=== PATIENT | male | born 1975 | race Caucasian/White ===

== ENCOUNTER → 2017-01-30 | Outpatient (CLI) | payer BC ==
[~2017-01-30] MED LIST: *BLDWK7; AUG875 PO; BACTRIMDS PO; CLARITD12H PO; FLEXERIL10 PO; MOTRIN800 PO; RHINOAEROS NASAL; SKELAXIN40 PO; TAMIFLU PO; TYLENOL#3; ZYRTEC10 PO; ZYRTECD12 PO; [UNRECOGNIZED DRUG - CODE] PO; [UNRECOGNIZED DRUG - OTHER] TOPICAL
[2017-01-30 09:40] LABS: MEAN CORPUSCULAR VOLUME 88.5 fl (80.0-96.0); RED CELL DISTRIBUTION WIDTH 12.2 % (11.5-14.5); WHITE BLOOD COUNT 5.4 K/mm3 (4.0-10.0)
[2017-01-30 10:09] LABS: ALBUMIN 4.3 GM/DL (3.2-5.2); ALBUMIN/GLOBULIN RATIO 1.43 (1.00-1.93); ALKALINE PHOSPHATASE 62 U/L (45-117); ALT/SGPT 54 U/L (12-78); ANION GAP 6 MEQ/L (8-16); AST/SGOT 26 U/L (15-37); BLOOD UREA NITROGEN 13 MG/DL (7-18); CALCIUM LEVEL 8.6 MG/DL (8.5-10.1); CARBON DIOXIDE LEVEL 30 MEQ/L (21-32); CHLORIDE LEVEL 104 MEQ/L (98-107); CHOLESTEROL LEVEL 181 MG/DL (<200); CREATININE FOR GFR 1.19 MG/DL (0.70-1.30); GLOMERULAR FILTRATION RATE > 60.0 (>60); GLUCOSE, FASTING 95 MG/DL (70-105); POTASSIUM SERUM 4.1 MEQ/L (3.5-5.1); SODIUM LEVEL 140 MEQ/L (136-145); TOTAL PROTEIN 7.3 GM/DL (6.4-8.2); TRIGLYCERIDES LEVEL 127 MG/DL (<150)
== END ==
LOC: M LAB 08:50
PROVIDERS: ATTEND Family Medicine
DX: E55.9 Vitamin D deficiency, unspecified (principal); R74.8 Abnormal levels of other serum enzymes; K21.9 Gastro-esophageal reflux disease without esophagitis; R41.840 Attention and concentration deficit

== ENCOUNTER → 2017-01-30 | Outpatient (REF) | payer BC | LOC: M SFHCLERA 07:31 | PROVIDERS: ATTEND Family Medicine | DX: R74.8 Abnormal levels of other serum enzymes (principal); K21.9 Gastro-esophageal reflux disease without esophagitis; E55.9 Vitamin D deficiency, unspecified; R41.840 Attention and concentration deficit; Z53.9 Procedure and treatment not carried out, unspecified reason ==

== ENCOUNTER → 2017-09-01 | Outpatient (CLI) | payer BC | LOC: M LRY 10:43 | DX: R07.89 Other chest pain (principal) | CPT/HCPCS: 71046 ==

== ENCOUNTER → 2017-09-01 | Outpatient (REF) | payer BC | LOC: M SFHCLERA 10:33 | DX: R11.2 Nausea with vomiting, unspecified (principal) ==

== ENCOUNTER → 2018-02-04 | Outpatient (CLI) | payer BC ==
[2018-02-04 08:31] LABS: ESTIMATED AVERAGE GLUCOSE 100 MG/DL (60-110); HEMOGLOBIN A1c 5.1 %
[2018-02-04 09:02] LABS: CHOLESTEROL LEVEL 184 MG/DL (<200); HDL CHOLESTEROL 46 MG/DL (>40); MAGNESIUM LEVEL 2.3 MG/DL (1.8-2.4); NON-HDL-C 138 MG/DL; TRIGLYCERIDES LEVEL 80 MG/DL (<150)
== END ==
LOC: M LAB 07:40
DX: K21.9 Gastro-esophageal reflux disease without esophagitis (principal); Z68.27 Body mass index [BMI] 27.0-27.9, adult
CPT/HCPCS: 83735

== ENCOUNTER 2018-03-24 07:24 | Day surgery (SDC) | payer BC ==
[2018-03-24] MEDS ORDERED: fentaNYL 100 MCG/2 ML INJECTION (J3010) As Ordered (07:34)
[2018-03-24] MEDS ORDERED: PROPOFOL 200 MG/20 ML VIAL As Ordered ×2 (07:35→09:04)
[2018-03-24] MEDS: NS 1,000 ML IV (07:37)
[2018-03-24] MEDS ORDERED: LIDOCAINE 2% INJ 100 MG/5 ML SDV (FOR ANES.) As Ordered (07:37)
== END 2018-03-24 09:37 | disposition home or self-care (01) ==
LOC: M OPP 07:24
DX: K21.9 Gastro-esophageal reflux disease without esophagitis (principal); K31.89 Other diseases of stomach and duodenum; K22.8 Other specified diseases of esophagus; K29.70 Gastritis, unspecified, without bleeding; F90.9 Attention-deficit hyperactivity disorder, unspecified type; Z79.899 Other long term (current) drug therapy
CPT/HCPCS: 91035

== ENCOUNTER → 2018-08-27 | Outpatient (REF) | payer BC ==
[~2018-08-27] MED LIST changes: +ADDE20CA3 PO; +CETI10CH PO; +OMEP20CA3 PO
[2018-08-27 20:03] LABS: INFLUENZA A AMPLIFICATION NEGATIVE (NEGATIVE); INFLUENZA B AMPLIFICATION NEGATIVE (NEGATIVE)
== END ==
LOC: M LAB REF 18:50
PROVIDERS: ATTEND Physician Assistant
DX: J11.1 Influenza due to unidentified influenza virus with other respiratory manifestations (principal)

== ENCOUNTER → 2018-10-19 | Outpatient (CLI) | payer BC ==
--- NOTE | 2018-10-19 09:18 | REP ---
Clinical: Right ankle pain. Technique: AP, lateral, bilateral oblique views of the right ankle. Findings: Medial malleolus demonstrates subtle cortical irregularity with spurring. Ankle mortise appears intact. No acute fracture dislocation. Lateral malleolus appears normal. Impression: Mild degenerative changes primarily involving the medial malleolus. Electronically Signed by Taqueria Yen MD 10/19/2018 09:10 A
== END ==
LOC: M LRY 08:04
PROVIDERS: ATTEND Family Medicine
DX: M25.571 Pain in right ankle and joints of right foot (principal)

== ENCOUNTER → 2018-11-06 | Outpatient (CLI) | payer BC ==
--- NOTE | 2018-11-06 10:47 | REP ---
MRI RIGHT ANKLE WITHOUT CONTRAST: 11/06/2018 Comparison: 10/19/2018 x-ray. Clinical history. Right ankle pain, medial greater than lateral, chronic for several months. Technique: Coronal fat suppressed T2, axial T1 with fat suppressed T2 and a sagittal T1 with T2 STIR sequence provided. Achilles tendon shows no abnormal thickening. No intratendon signal abnormality. No significant peritendinitis. The Achilles fat pad intact. There is trace amount of fluid posterior to the ankle joint and the posterior subtalar joint. There is an os trigonum which has a sharp posterior inferior curve to its contour. Posterior subtalar joint showed no subchondral edema or chondromalacia. There is a small amount of fluid anterior to the posterior subtalar joint. There is some increased signal in deep fibers of the deltoid ligament but no gross tear. There is thickening of the distal posterior tibial tendon inferior to the medial malleolus suggesting grade 1 tendon injury. No gross tear or retraction. The FDL and FHL tendons are intact. PD/PL tendons, AT, EDL and EHL tendons are all intact. There is edema and fluid in the sinus tarsi. There is strain of the posterior talofibular ligament and calcaneofibular ligaments, significant. The anterior tibiofibular ligament is intact. Anterior talofibular ligament with some strain. Fluid anterior to the ankle joint and tibial plafond. There is no talar dome osteochondral defect. There appears to be some mild chondromalacia at the ankle mortise along the talar dome. Impression: 1. Evidence of thickening of the distal course of the posterior tibial tendon as it extends anterior and inferior to the medial malleolus with grade 1 tendon changes. No disruption of the tendon or significant fluid/tenosynovitis. 2. The other medial and lateral as well as anterior tendons and the Achilles about the ankle were unremarkable 3. Some mild strain deltoid ligament deep fibers and the significant strain partial tearing of the posterior talofibular, calcaneofibular and anterior tibiofibular ligament. The tibiofibular ligament intact. Fluid anterior and posterior to the ankle joint. 4. Fluid and edema in the sinus tarsi. Electronically Signed by Adonis Campos MD 11/06/2018 06:33 P
== END ==
LOC: M RAD 07:17
PROVIDERS: ATTEND Family Medicine
DX: S96.911A Strain of unspecified muscle and tendon at ankle and foot level, right foot, initial encounter (principal); X58.XXXA Exposure to other specified factors, initial encounter; Y92.9 Unspecified place or not applicable

== ENCOUNTER → 2019-01-28 | Outpatient (CLI) | payer BC ==
[2019-01-28 14:43] LABS: HEMOGLOBIN A1c 5.5 %
[2019-01-28 14:46] LABS: ALT/SGPT 61 U/L (12-78); BILIRUBIN,TOTAL 0.7 MG/DL (0.2-1.0); BLOOD UREA NITROGEN 13 MG/DL (7-18); CALCIUM LEVEL 8.5 MG/DL (8.5-10.1); CARBON DIOXIDE LEVEL 27 MEQ/L (21-32); CHLORIDE LEVEL 107 MEQ/L (98-107); CHOLESTEROL LEVEL 157 MG/DL (<200); CHOLESTEROL RISK RATIO 4.131 (<5); CREATININE FOR GFR 1.11 MG/DL (0.70-1.30); GLOMERULAR FILTRATION RATE > 60.0 (>60); GLUCOSE, FASTING 87 MG/DL (70-100); HDL CHOLESTEROL 38 MG/DL (>40); LDL CHOLESTEROL 99 MG/DL (<100); NON-HDL-C 119 MG/DL; SODIUM LEVEL 141 MEQ/L (136-145); TOTAL PROTEIN 7.1 GM/DL (6.4-8.2); TRIGLYCERIDES LEVEL 99 MG/DL (<150)
== END ==
LOC: M LAB 13:28
PROVIDERS: ATTEND Family Medicine
DX: E66.3 Overweight (principal)

== ENCOUNTER → 2019-01-28 | Outpatient (REF) | payer BC | LOC: M SFHCLERA 08:00 | PROVIDERS: ATTEND Family Medicine | DX: E66.3 Overweight (principal); Z53.9 Procedure and treatment not carried out, unspecified reason ==

== ENCOUNTER → 2020-02-29 | Outpatient (CLI) | payer BC ==
[~2020-02-29] MED LIST changes: +OMEP1CAP73 PO; -OMEP20CA3 PO
== END ==
LOC: M LABSMTC 13:37
PROVIDERS: ATTEND Pediatrics
DX: Z11.59 Encounter for screening for other viral diseases (principal)

== ENCOUNTER → 2020-03-16 | Outpatient (CLI) | payer BC | LOC: M LABSMTC 10:47 | PROVIDERS: ATTEND Pediatrics | DX: Z20.828 Contact with and (suspected) exposure to other viral communicable diseases (principal) ==

== ENCOUNTER → 2020-04-11 | Outpatient (CLI) | payer BC ==
[2020-05-30 10:43] LABS: BASO % 0.6 % (0.0-1.0); EOS # 0.1 10^3/uL (0.0-0.5); EOS % 1.2 % (0.0-3.0); HEMATOCRIT 41.8 % (42.0-52.0); HEMOGLOBIN 14.6 g/dl (13.5-17.5); LYMPH # 1.8 10^3/uL (1.5-5.0); MEAN CORPUSCULAR HEMOGLOBIN 31.2 pg (27.0-33.0); MEAN CORPUSCULAR HGB CONC 34.9 g/dl (32.0-36.5); MEAN CORPUSCULAR VOLUME 89.3 fl (80.0-96.0); MONO # 0.4 10^3/uL (0.0-0.8); MONO % 8.9 % (0.0-5.0); NEUTROPHILS # 2.6 10^3/uL (1.5-8.5); NEUTROPHILS % 52.1 % (36.0-66.0); PLATELET COUNT, AUTOMATED 193 10^3/uL (150-450); RED BLOOD COUNT 4.68 10^6/uL (4.30-6.10)
[2020-06-15 14:30] LABS: ALBUMIN 4.1 GM/DL (3.2-5.2); ALT/SGPT 44 U/L (12-78); BILIRUBIN,TOTAL 0.7 MG/DL (0.2-1.0); BLOOD UREA NITROGEN 14 MG/DL (7-18); CALCIUM LEVEL 8.9 MG/DL (8.5-10.1); CARBON DIOXIDE LEVEL 29 MEQ/L (21-32); CHLORIDE LEVEL 107 MEQ/L (98-107); CREATININE FOR GFR 1.06 MG/DL (0.70-1.30); GLOMERULAR FILTRATION RATE > 60.0 (>60); GLUCOSE, FASTING 107 MG/DL (70-100); POTASSIUM SERUM 4.2 MEQ/L (3.5-5.1); SODIUM LEVEL 139 MEQ/L (136-145); TOTAL PROTEIN 6.9 GM/DL (6.4-8.2)
== END ==
LOC: M LAB 07:25
PROVIDERS: ATTEND Family Medicine
DX: N40.0 Benign prostatic hyperplasia without lower urinary tract symptoms (principal)

== ENCOUNTER → 2020-04-11 | Outpatient (CLI) | payer BC | LOC: M LAB 07:25 | PROVIDERS: ATTEND Urology | DX: N40.1 Benign prostatic hyperplasia with lower urinary tract symptoms (principal) ==

== ENCOUNTER → 2021-06-30 | Outpatient (CLI) | payer BC | LOC: M LABSMTC 09:46 | PROVIDERS: ATTEND Anesthesiology | DX: Z01.812 Encounter for preprocedural laboratory examination (principal); Z20.822 Contact with and (suspected) exposure to COVID-19 ==

== ENCOUNTER 2021-07-05 06:44 | Day surgery (SDC) | payer BC ==
[~2021-07-05] VITALS: Ht 193 cm; Wt 104.8 kg
[~2021-07-05 06:44] MED LIST changes: +NS 1,000 ML IV ONE
--- OUTSIDE RECORDS SUMMARY | 2021-07-05 06:49 | CCD | Continuity of Care Document ---
Author Author Edilson NGUYEN M.D. Organization Unknown Address [address] [facility], [address] [place] [address] Phone [phone] Care Team Providers Care Express Manager Name Role Phone Josué Kan D.O. AUTM [phone] AUTM Unavailable Problems Description No Information Available Social History Type Date Description Comments Sex Unknown ETOH Use Denies alcohol use Tobacco Use Start: Unknown End: Unknown Patient is a former smoker 1/2 ppd x5 years quit in 1998 Recreational Drug Use Denies Drug Use Allergies and adverse reactions Description No Known Drug Allergies Medications Active Medications SIG Qnty Indications Ordering Provide r Date Adderall XR 20mg Caps ER 24HR 1tab po qd Unknown Zyrtec Allergy 10mg Tablets 1tab po qd Unknown Omeprazole 20mg Capsules DR 1tab po qd Unknown Immunizations Description No Information Available Vital Signs Date Vital Result Comment 06/06/2021 1:03pm BP Systolic 126 mmHg BP Diastolic 84 mmHg Body Temperature 98.4 F Height 76 inches 6'4" Weight 232.50 lb BMI (Body Mass Index) 28.3 kg/m2 [place] Body Weight 202 lb Weight 105.462 kg BSA (Body Surface Area) 2.36 m2 01/21/2018 10:57am BP Systolic 124 mmHg BP Diastolic 70 mmHg Height 76 inches 6'4" Weight 227.00 lb BMI (Body Mass Index) 27.6 kg/m2 [place] Body Weight 202 lb Weight 102.967 kg BSA (Body Surface Area) 2.34 m2 Results Description No Information Available Procedures Description No Information Available Medical Devices Description No Information Available Encounters Description No Information Available Assessments Description No Information Available Plan of Treatment 01/21/2018 - Donny Lee M.D.* K21.0 Gastro-esophageal reflux disease with esophagitis * * New Orders:* Endoscopy, Ordered: 01/21/18 * Comments:* Impression:-- Chronic acid reflux with heartburn and acid regurgitation -- well controlled on omeprazole 20 mg daily -- DDx - r/o Hiatal hernia vs Barretts esophagus vs GERD vs PUD. * Recommendations:* -- Patient educated on the differential diagnoses in detail and all questions answered. 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 -- Anti reflux measures reinforced; Advised to avoid being overweight/obese; avoid acid reflux inducing food: excessive caffeine, chocolate, alcohol, peppermint and fatty foods; , Avoid large and late meal: eating three or more hours before bedtime. Printed material provided to patient. -- Will schedule for EGD with Beltr[facility] PH monitoring test. The procedure, its indications, risks (bleeding, perforation, infection, hypotension, respiratory depression, allergy, need for endotracheal intubation, surgery, or even ), benefits, limitations (e.g., missing a lesion), and the alternatives (radiographic studies) were explained to the patient who understood and agreed for the test.. -- Post procedure appointment based on EGD findings. -- Follow up with PMD for routine medical care and other age appropriate health maintenance. Functional Status Description No Information Available Mental Status Description No Information Available Referrals Refer to Reason for Referral Status Appt Date Donny Lee M.D. COLO SCREENING Scheduled 05/25 [facility] [address] [facility], [address] [place] [address] [id number] [phone]
--- OUTSIDE RECORDS SUMMARY | 2021-07-05 06:49 | CCD | Continuity of Care Document ---
Author Author Edilson NGUYEN M.D. Organization Unknown Address [address] [facility], [address] [place] [address] Phone [phone] Care Team Providers Care Hand Driller Name Role Phone Josué Kan D.O. 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 [...] Donny Lee M.D. COLO SCREENING Scheduled 05/25 [facility] [address] [facility], [address] [place] [address] [id number] [phone]
--- OUTSIDE RECORDS SUMMARY | 2021-07-05 06:49 | CCD ---
Author Author [facility] Organization [facility] Address Unknown Phone Unavailable Support Name Relationship Address Phone [facility]* Next Of Kin [address] [place] [address] THAI MANTILLA Next Of Kin [address] [address] [facility] Next Of Kin [address] [place] [address] GUERDA GRANT Next Of Kin [address] [place] [address] VICKEY CUMMINS Next Of Kin [address] [place] [address] Guerda Grant [facility] [address] [place] [address] [phone] Re-disclosure Warning The records that you are about to access may contain information from federally-assisted alcohol or drug abuse programs. If such information is present, then the following federally mandated warning applies: This information has been disclosed to you from records protected by federal confidentiality rules (42 CFR part 2). The federal rules prohibit you from making any further disclosure of this information unless further disclosure is expressly permitted by the written consent of the person to whom it pertains or as otherwise permitted by 42 CFR part 2. A general authorization for the release of medical or other information is NOT sufficient for this purpose. The Federal rules restrict any use of the information to criminally investigate or prosecute any alcohol or drug abuse patient.The records that you are about to access may contain highly sensitive health information, the redisclosure of which is protected by Article 27-F of the [facility] Public Health law. If you continue you may have access to information: Regarding HIV / AIDS; Provided by facilities licensed or operated by the [facility] Office of Mental Health; or Provided by the [facility] Office for People With Developmental Disabilities. If such information is present, then the following [facility] mandated warning applies: This information has been disclosed to you from confidential records which are protected by state law. State law prohibits you from making any further disclosure of this information without the specific written consent of the person to whom it pertains, or as otherwise permitted by law. Any unauthorized further disclosure in violation of state law may result in a fine or half-way sentence or both. A general authorization for the release of medical or other information is NOT sufficient authorization for further disc losure. Family History Family Member Name Family Member Gender Family Member Status Date o f Status Description Data Source(s) Unknown Unknown Problem [facility] ([facility], ) Encounters Encounter Providers Location Date Indications Data Source(s ) Unknown [address] [facility] [place] [address] 05/09/2021 12:00:00 AM EDT eCW1 ([facility]) Outpatient [address] [facility] [place] [address] 05/08/2021 12:00:00 AM EDT eCW1 ([facility]) Unknown [address] [facility] [place] [address] 04/06/2021 12:00:00 AM EDT eCW1 ([facility]) Unknown [address] [facility] [place] [address] 03/06/2021 12:00:00 AM EDT eCW1 ([facility]) Unknown [address] [facility] [place] [address] 02/03/2021 12:00:00 AM EDT eCW1 ([facility]) Unknown [address] [facility] [place] [address] 01/04/2021 12:00:00 AM EDT eCW1 ([facility]) Unknown [address] [facility] [place] [address] 01/04/2021 12:00:00 AM EDT eCW1 ([facility]) Unknown [address] [facility] [place] [address] 12/03/2020 12:00:00 AM EDT eCW1 ([facility]) [place] [address] [facility] [place] [address] 11/07/2020 12:00:00 AM EDT eCW1 ([facility]) [place] [address] [facility] [place] [address] 11/01/2020 12:00:00 AM EST eCW1 ([facility]) [place] [address] [facility] [place] [address] 10/02/2020 12:00:00 AM EST eCW1 ([facility]) [place] [address] [facility] [place] [address] 08/30/2020 12:00:00 AM EST eCW1 ([facility]) [place] [address] [facility] [place] [address] 08/30/2020 12:00:00 AM EST eCW1 ([facility]) [place] [address] [facility] [place] [address] 08/08/2020 12:00:00 AM EST eCW1 ([facility]) [place] [address] [facility] [place] [address] 07/13/2020 12:00:00 AM EST eCW1 ([facility]) [place] [address] [facility] [place] [address] 06/26/2020 12:00:00 AM EST eCW1 ([facility]) [place] [address] [facility] [place] [address] 06/15/2020 12:00:00 AM EDT eCW1 ([facility]) [place] [address] [facility] [place] [address] 06/15/2020 12:00:00 AM EDT eCW1 ([facility]) [place] [address] [facility] [place] [address] 06/12/2020 12:00:00 AM EDT [facility]CW1 [facility] Immunizations Vaccine Date Status Description Data Source(s) COVID-19 VACCINE [facility] 05/21/2021 12:00:00 AM EDT completed [facility] Vaccine Series Complete: YESThis Data wa s Submitted to [facility] Via [employer] COVID-19 VACCINE [facility] 09/20/2020 12:00:00 AM EST completed [facility] Vaccine Series Complete: YESThis Data wa s Submitted to [facility] [employer] COVID-19 VACCINE [facility] 09/01/2020 12:00:00 AM EST completed [facility] Vaccine Series Complete: NOThis Data was Submitted to [facility] [employer] Medications Medication Brand Name Start Date Product Form Dose Route Admi nistrative Instructions Pharmacy Instructions Status Indications Reaction Description Data Source(s) SUPREP BOWEL PREP KIT 17.5-3.13-1.6 gram SODIUM, POTASSIUM,M AG SULFATES 06/22/2021 12:00:00 AM EDT recon soln 354 TAKE PER 'S BOWEL PREP INSTRUCTIONS TAKE PER 'S BOWEL PREP INSTRUCTIONS SOLD: 06/27/2021 [facility] 30 mg 06/12/2021 12:00:00 AM EDT capsule,extended releas e 24hr 30 TAKE ONE CAPSULE BY MOUTH EVERY MORNING MAXIMUM DAILY DOSE = 1 TAKE ONE CAPSULE BY MOUTH EVERY MORNING MAXIMUM DAILY DOSE = 1 SOLD: 06/15/2021 [facility] Amphetamine aspartate 1.25 MG / Amphetam ine Sulfate 1.25 MG / Dextroamphetamine saccharate 1.25 MG / Dextroamphetamine Sulfate 1.25 MG Oral Tablet [Adderall] Adderall 5 MG Adderall 5 MG 05/07/2021 12:00:00 AM EDT 1.0 {tablet_in_the_morning} active Adderall 5 MG eCW1 ([facility]) 24 HR Amphetamine aspartate 7.5 MG / Amp hetamine Sulfate 7.5 MG / Dextroamphetamine saccharate 7.5 MG / Dextroamphetamine Sulfate 7.5 MG Extended Release Oral Capsule [Adderall] Adderall XR 30 MG Adderall XR 30 MG 04/25 12:00:00 AM EDT 1.0 {capsule_in_the_morning} act yahir Adderall XR 30 MG eCW1 ([facility]) 24 HR Amphetamine aspartate 7.5 MG / Amp hetamine Sulfate 7.5 MG / Dextroamphetamine saccharate 7.5 MG / Dextroamphetamine Sulfate 7.5 MG Extended Release Oral Capsule 30 mg DEXTROAMPHETAMINE/AMPHETAMINE 05/07/2021 12:00:00 AM EDT capsule,extended release 24hr 30 TA KE ONE CAPSULE BY MOUTH EVERY DAY MAXIMUM DAILY DOSE = 1 CAPSULE TAKE ONE CAPSULE BY MOUTH EVERY DAY MAXI MUM DAILY DOSE = 1 CAPSULE SOLD: 05/07/2021 [facility] 5 mg 05/07/2021 12:00:00 AM EDT tablet 30 TAKE ONE TABLET BY MOUTH EVERY DAY MAXIMUM DAILY DOSE = 1 TABLET TAKE ONE TABLET BY MOUTH EVERY DAY MAXIM UM DAILY DOSE = 1 TABLET SOLD: 05/07/2021 [facility] Amphetamine aspartate 1.25 MG / Amphetam ine Sulfate 1.25 MG / Dextroamphetamine saccharate 1.25 MG / Dextroamphetamine Sulfate 1.25 MG Oral Tablet [Adderall] Adderall 5 MG Adderall 5 MG 05/07/2021 12:00:00 AM EDT 1.0 {tablet_in_the_morning} active Adderall 5 MG eCW1 ([facility]) 24 HR Amphetamine aspartate 7.5 MG / Amp hetamine Sulfate 7.5 MG / Dextroamphetamine saccharate 7.5 MG / Dextroamphetamine Sulfate 7.5 MG Extended Release Oral Capsule [Adderall] Adderall XR 30 MG Adderall XR 30 MG 04/25 12:00:00 AM EDT 1.0 {capsule_in_the_morning} act yahir Adderall XR 30 MG eCW1 ([facility]) 24 HR Amphetamine aspartate 7.5 MG / Amp hetamine Sulfate 7.5 MG / Dextroamphetamine saccharate 7.5 MG / Dextroamphetamine Sulfate 7.5 MG Extended Release Oral Capsule 30 mg DEXTROAMPHETAMINE/AMPHETAMINE 04/09/2021 12:00:00 AM EDT capsule,extended release 24hr 30 TA KE ONE CAPSULE BY MOUTH EVERY MORNING MAXIMUM DAILY DOSE = 1 TAKE ONE CAPSULE BY MOUTH EVERY MORNING MAXIMUM DAILY DOSE = 1 SOLD: 04/11/2021 [facility] 24 HR Amphetamine aspartate 7.5 MG / Amp hetamine Sulfate 7.5 MG / Dextroamphetamine saccharate 7.5 MG / Dextroamphetamine Sulfate 7.5 MG Extended Release Oral Capsule [Adderall] Adderall XR 30 MG Adderall XR 30 MG 03/25 12:00:00 AM EDT 1.0 {capsule_in_the_morning} act yahir Adderall XR 30 MG eCW1 ([facility]) 24 HR Amphetamine aspartate 7.5 MG / Amp hetamine Sulfate 7.5 MG / Dextroamphetamine saccharate 7.5 MG / Dextroamphetamine Sulfate 7.5 MG Extended Release Oral Capsule 30 mg DEXTROAMPHETAMINE/AMPHETAMINE 03/09/2021 12:00:00 AM EDT capsule,extended release 24hr 30 TA KE ONE CAPSULE BY MOUTH EVERY MORNING MAXIMUM DAILY DOSE = 1 CAPSULE TAKE ONE CAPSULE BY MOUTH EVERY MORNING MAXIMUM DAILY DOSE = 1 CAPSULE SOLD: 03/11/2021 [facility] 24 HR Amphetamine aspartate 7.5 MG / Amp hetamine Sulfate 7.5 MG / Dextroamphetamine saccharate 7.5 MG / Dextroamphetamine Sulfate 7.5 MG Extended Release Oral Capsule [Adderall] Adderall XR 30 MG Adderall XR 30 MG 02/22 12:00:00 AM EDT 1.0 {capsule_in_the_morning} act yahir Adderall XR 30 MG eCW1 ([facility]) Amphetamine aspartate 1.25 MG / Amphetam ine Sulfate 1.25 MG / Dextroamphetamine saccharate 1.25 MG / Dextroamphetamine Sulfate 1.25 MG Oral Tablet [Adderall] Adderall 5 MG Adderall 5 MG 02/05/2021 12:00:00 AM EDT 1.0 {tablet_in_the_morning} active Adderall 5 MG eCW1 ([facility]) Amphetamine aspartate 1.25 MG / Amphetam ine Sulfate 1.25 MG / Dextroamphetamine saccharate 1.25 MG / Dextroamphetamine Sulfate 1.25 MG Oral Tablet [Adderall] Adderall 5 MG Adderall 5 MG 02/05/2021 12:00:00 AM EDT 1.0 {tablet_in_the_morning} active Adderall 5 MG eCW1 ([facility]) 5 mg 02/05/2021 12:00:00 AM EDT tablet 30 TAKE ONE TABLET BY MOUTH EVERY MORNING, MAXIMUM DAILY DOSE = 1 TAKE ONE TABLET BY MOUTH EVERY MORNING, MAXIMUM DAILY DOSE = 1 SOLD: 02/08/2021 [facility] 24 HR Amphetamine aspartate 7.5 MG / Amp hetamine Sulfate 7.5 MG / Dextroamphetamine saccharate 7.5 MG / Dextroamphetamine Sulfate 7.5 MG Extended Release Oral Capsule [Adderall] Adderall XR 30 MG Adderall XR 30 MG 01/23 12:00:00 AM EDT 1.0 {capsule_in_the_morning} act yahir Adderall XR 30 MG eCW1 ([facility]) Amphetamine aspartate 1.25 MG / Amphetam ine Sulfate 1.25 MG / Dextroamphetamine saccharate 1.25 MG / Dextroamphetamine Sulfate 1.25 MG Oral Tablet [Adderall] Adderall 5 MG Adderall 5 MG 02/05/2021 12:00:00 AM EDT 1.0 {tablet_in_the_morning} active Adderall 5 MG eCW1 ([facility]) 24 HR Amphetamine aspartate 7.5 MG / Amp hetamine Sulfate 7.5 MG / Dextroamphetamine saccharate 7.5 MG / Dextroamphetamine Sulfate 7.5 MG Extended Release Oral Capsule 30 mg DEXTROAMPHETAMINE/AMPHETAMINE 02/05/2021 12:00:00 AM EDT capsule,extended release 24hr 30 TA KE ONE CAPSULE BY MOUTH EVERY MORNING, MAXIMUM DAILY DOSE = 1 TAKE ONE CAPSULE BY MOUTH EVERY MORNING, MAXIMUM DAILY DOSE = 1 SOLD: 02/08/2021 [facility] 24 HR Amphetamine aspartate 7.5 MG / Amp hetamine Sulfate 7.5 MG / Dextroamphetamine saccharate 7.5 MG / Dextroamphetamine Sulfate 7.5 MG Extended Release Oral Capsule 30 mg DEXTROAMPHETAMINE/AMPHETAMINE 01/04/2021 12:00:00 AM EDT capsule,extended release 24hr 30 TA KE ONE CAPSULE BY MOUTH IN THE MORNING ONCE A DAY TAKE ONE CAPSULE BY MOUTH IN THE MORNING ONCE A DAY SOLD: [facility] 20 mg 01/04/2021 12:00:00 AM EDT capsule,delayed release (DR/EC) 90 TAKE ONE CAPSULE BY MOUTH ONCE A DAY TAKE ONE CAPSULE BY MOUTH ONCE A DAY SOLD: 03/31/2021 [facility] 24 HR Amphetamine aspartate 7.5 MG / Amp hetamine Sulfate 7.5 MG / Dextroamphetamine saccharate 7.5 MG / Dextroamphetamine Sulfate 7.5 MG Extended Release Oral Capsule [Adderall] Adderall XR 30 MG Adderall XR 30 MG 12/23 12:00:00 AM EDT 1.0 {capsule_in_the_morning} act yahir Adderall XR 30 MG eCW1 ([facility]) 24 HR Amphetamine aspartate 7.5 MG / Amp hetamine Sulfate 7.5 MG / Dextroamphetamine saccharate 7.5 MG / Dextroamphetamine Sulfate 7.5 MG Extended Release Oral Capsule [Adderall] Adderall XR 30 MG Adderall XR 30 MG 12/23 12:00:00 AM EDT 1.0 {capsule_in_the_morning} act yahir Adderall XR 30 MG eCW1 ([facility]) 20 mg 01/04/2021 12:00:00 AM EDT capsule,delayed release (DR/EC) 90 TAKE ONE CAPSULE BY MOUTH ONCE A DAY TAKE ONE CAPSULE BY MOUTH ONCE A DAY SOLD: 01/05/2021 [facility] 30 mg 12/05/2020 12:00:00 AM EDT capsule,extended releas e 24hr 30 TAKE ONE CAPSULE BY MOUTH EVERY MORNING, MAXIMUM DAILY DOSE = 1 TAKE ONE CAPSULE BY MOUTH EVERY MORNING, MAXIMUM DAILY DOSE = 1 SOLD: 12/06/2020 [facility] 24 HR Amphetamine aspartate 7.5 MG / Amp hetamine Sulfate 7.5 MG / Dextroamphetamine saccharate 7.5 MG / Dextroamphetamine Sulfate 7.5 MG Extended Release Oral Capsule [Adderall] Adderall XR 30 MG Adderall XR 30 MG 11/23 12:00:00 AM EDT 1.0 {capsule_in_the_morning} act yahir Adderall XR 30 MG eCW1 ([facility]) Famotidine 20 MG Oral Tablet Famotidine 20 MG 11/07/2020 12:00:00 A M EDT 1.0 {tablet_at_bedtime_as_needed} active Fa motidine 20 MG eCW1 ([facility]) Famotidine 20 MG Oral Tablet Famotidine 20 MG 11/07/2020 12:00:00 A M EDT 1.0 {tablet_at_bedtime_as_needed} active Fa motidine 20 MG eCW1 ([facility]) Famotidine 20 MG Oral Tablet Famotidine 20 MG 11/07/2020 12:00:00 A M EDT 1.0 {tablet_at_bedtime_as_needed} active Fa motidine 20 MG eCW1 ([facility]) Famotidine 20 MG Oral Tablet Famotidine 20 MG 11/07/2020 12:00:00 A M EDT 1.0 {tablet_at_bedtime_as_needed} suspended Famotidine 20 MG eCW1 ([facility]) Famotidine 20 MG Oral Tablet Famotidine 20 MG 11/07/2020 12:00:00 A M EDT 1.0 {tablet_at_bedtime_as_needed} active Fa motidine 20 MG eCW1 ([facility]) 20 mg 11/07/2020 12:00:00 AM EDT tablet 30 TAKE ONE TABLET BY MOUTH EVERY DAY AT BEDTIME NEEDED TAKE ONE TABLET BY MOUTH EVERY DAY AT BE DTIME NEEDED SOLD: 11/18/2020 [facility] Famotidine 20 MG Oral Tablet Famotidine 20 MG 11/07/2020 12:00:00 A M EDT 1.0 {tablet_at_bedtime_as_needed} active Fa motidine 20 MG eCW1 ([facility]) Famotidine 20 MG Oral Tablet Famotidine 20 MG 11/07/2020 12:00:00 A M EDT 1.0 {tablet_at_bedtime_as_needed} active Fa motidine 20 MG eCW1 ([facility]) Famotidine 20 MG Oral Tablet Famotidine 20 MG 11/07/2020 12:00:00 A M EDT 1.0 {tablet_at_bedtime_as_needed} active Fa motidine 20 MG eCW1 ([facility]) 24 HR Amphetamine aspartate 7.5 MG / Amp hetamine Sulfate 7.5 MG / Dextroamphetamine saccharate 7.5 MG / Dextroamphetamine Sulfate 7.5 MG Extended Release Oral Capsule [Adderall] Adderall XR 30 MG Adderall XR 30 MG 10/23 12:00:00 AM EST 1.0 {capsule_in_the_morning} act yahir Adderall XR 30 MG eCW1 ([facility]) 30 mg 11/01/2020 12:00:00 AM EST capsule,extended releas e 24hr 30 TAKE ONE CAPSULE BY MOUTH EVERY MORNING MAXIMUM DAILY DOSE = 1 CAP TAKE ONE CAPSULE BY MOUTH EVERY MORNING MAXIMUM DAILY DOSE = 1 CAP SOLD: 11/06/2020 [facility] 24 HR Amphetamine aspartate 7.5 MG / Amp hetamine Sulfate 7.5 MG / Dextroamphetamine saccharate 7.5 MG / Dextroamphetamine Sulfate 7.5 MG Extended Release Oral Capsule [Adderall] Adderall XR 30 MG Adderall XR 30 MG 10/23 12:00:00 AM EST 1.0 {capsule_in_the_morning} act yahir Adderall XR 30 MG eCW1 ([facility]) 30 mg 10/05/2020 12:00:00 AM EST capsule,extended releas e 24hr 30 TAKE ONE CAPSULE BY MOUTH EVERY MORNING, MAXIMUM DAILY DOSE = 1 TAKE ONE CAPSULE BY MOUTH EVERY MORNING, MAXIMUM DAILY DOSE = 1 SOLD: 10/05/2020 [facility] 24 HR Amphetamine aspartate 7.5 MG / Amp hetamine Sulfate 7.5 MG / Dextroamphetamine saccharate 7.5 MG / Dextroamphetamine Sulfate 7.5 MG Extended Release Oral Capsule [Adderall] Adderall XR 30 MG Adderall XR 30 MG 03/2021 12:00:00 AM EST 1.0 {capsule_in_the_morning} act yahir Adderall XR 30 MG eCW1 ([facility]) 30 mg 08/30/2020 12:00:00 AM EST capsule,extended releas e 24hr 30 TAKE ONE CAPSULE BY MOUTH EVERY MORNING, MAXIMUM DAILY DOSE = 1 TAKE ONE CAPSULE BY MOUTH EVERY MORNING, MAXIMUM DAILY DOSE = 1 SOLD: 09/06/2020 [facility] 24 HR Amphetamine aspartate 5 MG / Amphe tamine Sulfate 5 MG / Dextroamphetamine saccharate 5 MG / Dextroamphetamine Sulfate 5 MG Extended Release Oral Capsule [Adderall] Adderall XR 20 MG Adderall XR 20 MG 08/08/2020 12:00:00 AM EST active Adderall XR 20 MG eCW1 ([facility]) 20 mg 08/08/2020 12:00:00 AM EST capsule,extended releas e 24hr 30 TAKE 1 CAPSULE BY MOUTH ONCE DAILY, MAXIMUM DAILY DOSE = 1 TAKE 1 CAPSULE BY MOUTH ONCE DAILY, MAXIMUM DAILY DOSE = 1 SOLD: 08/14/2020 [facility] 50 mg 07/14/2020 12:00:00 AM EST tablet 12 TAKE ONE TABLET BY MOUTH EVERY 4 TO 6 HOURS NEEDED FOR PAIN, MAXIMUM DAILY DOSE = SIX TABLETS TAKE ONE TABLET BY MOUTH EVERY 4 TO 6 HOURS NEEDED FOR PAIN, MAXIMUM DAILY DOSE = SIX TABLETS SOLD: 07/14/2020 [facility] 875 mg 07/14/2020 12:00:00 AM EST tablet 14 TAKE ONE TABLET BY MOUTH TWO TIMES A DAY FOR 7 DAYS TAKE ONE TABLET BY MOUTH TWO TIMES A DAY FOR 7 DAYS SO LD: 07/14/2020 [facility] 24 HR Amphetamine aspartate 7.5 MG / Amp hetamine Sulfate 7.5 MG / Dextroamphetamine saccharate 7.5 MG / Dextroamphetamine Sulfate 7.5 MG Extended Release Oral Capsule [Adderall] Adderall XR 30 MG Adderall XR 30 MG 06/25 12:00:00 AM EST 1.0 {capsule_in_the_morning} act yahir Adderall XR 30 MG eCW1 ([facility]) 24 HR Amphetamine aspartate 7.5 MG / Amp hetamine Sulfate 7.5 MG / Dextroamphetamine saccharate 7.5 MG / Dextroamphetamine Sulfate 7.5 MG Extended Release Oral Capsule [Adderall] Adderall XR 30 MG Adderall XR 30 MG 06/25 12:00:00 AM EST 1.0 {capsule_in_the_morning} act yahir Adderall XR 30 MG eCW1 ([facility]) 24 HR Amphetamine aspartate 7.5 MG / Amp hetamine Sulfate 7.5 MG / Dextroamphetamine saccharate 7.5 MG / Dextroamphetamine Sulfate 7.5 MG Extended Release Oral Capsule [Adderall] Adderall XR 30 MG Adderall XR 30 MG 06/25 12:00:00 AM EST 1.0 {capsule_in_the_morning} act yahir Adderall XR 30 MG eCW1 ([facility]) 30 mg 07/13/2020 12:00:00 AM EST capsule,extended releas e 24hr 30 TAKE ONE CAPSULE BY MOUTH EVERY MORNING , MAXIMUM DAILY DOSE = 1 CAPSULE TAKE ONE CAPSULE BY MOUTH EVERY MORNING , MAXIMUM DAILY DOSE = 1 CAPSULE SOLD: 07/13/2020 [facility] 24 HR Amphetamine aspartate 7.5 MG / Amp hetamine Sulfate 7.5 MG / Dextroamphetamine saccharate 7.5 MG / Dextroamphetamine Sulfate 7.5 MG Extended Release Oral Capsule [Adderall] Adderall XR 30 MG Adderall XR 30 MG 06/25 12:00:00 AM EST 1.0 {capsule_in_the_morning} act yahir Adderall XR 30 MG eCW1 ([facility]) 20 mg 06/26/2020 12:00:00 AM EST capsule,delayed release (DR/EC) 90 TAKE ONE CAPSULE BY MOUTH EVERY DAY TAKE ONE CAPSULE BY MOUTH EVERY DAY SOLD: 09/23/2020 [facility] 24 HR Amphetamine aspartate 7.5 MG / Amp hetamine Sulfate 7.5 MG / Dextroamphetamine saccharate 7.5 MG / Dextroamphetamine Sulfate 7.5 MG Extended Release Oral Capsule [Adderall] Adderall XR 30 MG Adderall XR 30 MG 05/26 12:00:00 AM EDT 1.0 {capsule_in_the_morning} act yahir Adderall XR 30 MG eCW1 ([facility]) 24 HR Amphetamine aspartate 7.5 MG / Amp hetamine Sulfate 7.5 MG / Dextroamphetamine saccharate 7.5 MG / Dextroamphetamine Sulfate 7.5 MG Extended Release Oral Capsule [Adderall] Adderall XR 30 MG Adderall XR 30 MG 05/26 12:00:00 AM EDT 1.0 {capsule_in_the_morning} act yahir Adderall XR 30 MG eCW1 ([facility]) 30 mg 06/13/2020 12:00:00 AM EDT capsule,extended releas e 24hr 30 TAKE ONE CAPSULE BY MOUTH EVERY MORNING , MAXIMUM DAILY DOSE = 1 CAPSULE TAKE ONE CAPSULE BY MOUTH EVERY MORNING , MAXIMUM DAILY DOSE = 1 CAPSULE SOLD: 06/13/2020 [facility] 24 HR Amphetamine aspartate 7.5 MG / Amp hetamine Sulfate 7.5 MG / Dextroamphetamine saccharate 7.5 MG / Dextroamphetamine Sulfate 7.5 MG Extended Release Oral Capsule [Adderall] Adderall XR 30 MG Adderall XR 30 MG 05/26 12:00:00 AM EDT 1.0 {capsule_in_the_morning} act yahir Adderall XR 30 MG eCW1 ([facility]) 24 HR Amphetamine aspartate 7.5 MG / Amp hetamine Sulfate 7.5 MG / Dextroamphetamine saccharate 7.5 MG / Dextroamphetamine Sulfate 7.5 MG Extended Release Oral Capsule [Adderall] Adderall XR 30 MG Adderall XR 30 MG 05/26 12:00:00 AM EDT 1.0 {capsule_in_the_morning} act yahir Adderall XR 30 MG eCW1 ([facility]) 30 mg 05/13/2020 12:00:00 AM EDT capsule,extended releas e 24hr 30 TAKE ONE CAPSULE BY MOUTH EVERY MORNING, MAXIMUM DAILY DOSE = 1 TAKE ONE CAPSULE BY MOUTH EVERY MORNING, MAXIMUM DAILY DOSE = 1 SOLD: 05/14/2020 [facility] 50 mg 04/09/2020 12:00:00 AM EDT tablet 6 TAKE ONE TABLET BY MOUTH ONCE DAILY NEEDED TAKE ONE TABLET BY MOUTH ONCE DAILY NEEDED SOLD: 09/23/19 21 [facility] Insurance Providers Payer name Policy type / Coverage type Policy ID Covered democrat ID Covered democrat's relationship to neves Policy Neves Plan Information [facility] OF [facility] 6 [id number] SP [id number] [facility] OF [facility] 80 [id number] SP [id number] ANSI-Commercial [id number] [employer] OF [facility] [id number] SP [id number] ANSI-Commercial [id number] ANSI-Commercial [id number] ANSI-Commercial [id number] ANSI-Commercial [id number] ANSI-Commercial [id number] ANSI-Commercial [id number] ANSI-Commercial [id number] ANSI-Commercial [id number] ANSI-Commercial [id number] [employer]BS [place] PPO 302/307 [id number] SP [id number] ANSI-Commercial [id number] ANSI-Commercial [id number] ANSI-Commercial [id number] ANSI-Commercial [id number] ANSI-Commercial [id number] ANSI-Commercial [id number] [facility] [employer]BS [employer] Maintenance [employer] (HMO) [id number] Self [id number] [facility] BCBS B [id number] S VYS [id number] [place] Commercial [id number] Self [place] 306/806 [id number] SP [id number] ANSI-Commercial [id number] [place] [place] 306/806 [id number] SP [id number] ANSI-Commercial [id number] Problems, Conditions, and Diagnoses Code Display Name Description Problem Type Effective Dates Data Source(s) R39.9 Lower urinary tract symptoms Lower urinary tract sympt oms (LUTS) Problem 06/15/2020 12:00:00 AM EDT eCW1 ([facility]) N52.9 Erectile dysfunction Erectile dysfunction Problem 06/15/2020 12:00:00 AM EDT eCW1 ([facility]) Surgeries/Procedures No Information Results No Information Social History Code Duration Value Status Description Data Source(s ) Smoking 05/08/2021 12:00:00 AM EDT Former Smoker completed Former Smoker eCW1 ([facility]) Smoking 05/08/2021 12:00:00 AM EDT Former Smoker completed Former Smoker eCW1 ([facility]) Smoking 11/07/2020 12:00:00 AM EDT Former Smoker completed Former Smoker eCW1 ([facility]) Smoking 11/07/2020 12:00:00 AM EDT Former Smoker completed Former Smoker eCW1 ([facility]) Smoking 11/07/2020 12:00:00 AM EDT Former Smoker completed Former Smoker eCW1 ([facility]) Smoking 11/07/2020 12:00:00 AM EDT Former Smoker completed Former Smoker eCW1 ([facility]) Smoking 11/07/2020 12:00:00 AM EDT Former Smoker completed Former Smoker eCW1 ([facility]) Smoking 11/07/2020 12:00:00 AM EDT Former Smoker completed Former Smoker eCW1 ([facility]) Smoking 11/07/2020 12:00:00 AM EDT Former Smoker completed Former Smoker eCW1 ([facility]) Smoking 06/15/2020 12:00:00 AM EDT Former Smoker completed Former Smoker eCW1 ([facility]) Smoking 06/15/2020 12:00:00 AM EDT Former Smoker completed Former Smoker eCW1 ([facility]) Smoking 06/15/2020 12:00:00 AM EDT Former Smoker completed Former Smoker eCW1 ([facility]) Smoking 06/15/2020 12:00:00 AM EDT Former Smoker completed Former Smoker eCW1 ([facility]) Smoking 06/15/2020 12:00:00 AM EDT Former Smoker completed Former Smoker eCW1 ([facility]) Smoking 06/15/2020 12:00:00 AM EDT Former Smoker completed Former Smoker eCW1 ([facility]) Smoking 06/15/2020 12:00:00 AM EDT Former Smoker completed Former Smoker eCW1 ([facility]) Smoking 06/15/2020 12:00:00 AM EDT Former Smoker completed Former Smoker eCW1 ([facility]) Smoking 06/15/2020 12:00:00 AM EDT Former Smoker completed Former Smoker eCW1 ([facility]) Vital Signs ID Date Data Source UNK Name Value Range Interpretation Code Description Data Source(s) [facility]stolic blood pressure 126 mm[Hg] 126 [facility]Hg[facility] Diastolic blood pressure 84 mm[Hg] 84 mm[Hg] [facility] Body temperature 98.4 [degF] 98.4 [degF] [facility] ([facility]) Body height 76 [in_i] 76 [in_i] [facility] ([facility]) 6'4" Body weight 232.50 [lb_av] 232.50 [lb_av] [facility] Body mass index (BMI) [Ratio] 28.3 kg/m2 28.3 k g/m2 [facility] ([facility]) Floweree body weight 202 [lb_av] 202 [lb_av] [facility] Body weight 105.462 kg 105.462 kg [facility] ([facility]) Body surface area Derived from formula 2.36 m2 2.36 m2 [facility] ([facility]) Body weight 231.2 [lb_av] 231.2 [lb_av] eCW1 ([facility]) Body weight 104.87 kg 104.87 kg W1 ([facility]) Body height 76 [in_i] 76 [in_i] W1 ([facility]) Body mass index (BMI) [Ratio] 28.14 kg/m2 28.14 kg/m2 [facility] ([facility]) Heart rate 80 /min 80 /min eCW1 ([facility]) Respiratory rate 17 /min 17 /min eCW1 ([facility]) Body temperature 98.6 [degF] 98.6 [degF] eCW1 ( [facility]) Systolic blood pressure 117 mm[Hg] 117 mm[Hg] e CW1 ([facility]) Diastolic blood pressure 76 mm[Hg] 76 mm[Hg] eCW1 ([facility]) Body weight 238 [lb_av] 238 [lb_av] eCW1 ([facility]) Body temperature 97.6 [degF] 97.6 [degF] eCW1 ( [facility]) Body height 76 [in_i] 76 [in_i] eCW1 ([facility]) Body mass index (BMI) [Ratio] 28.97 kg/m2 28.97 kg/m2 eCW1 ([facility]) Heart rate 73 /min 73 /min eCW1 ([facility]) Respiratory rate 16 /min 16 /min eCW1 ([facility]) Systolic blood pressure 126 mm[Hg] 126 mm[Hg] e CW1 ([facility]) Diastolic blood pressure 85 mm[Hg] 85 mm[Hg] eCW1 ([facility]) Body weight 230 [lb_av] 230 [lb_av] eCW1 ([facility]) Body height 76 [in_i] 76 [in_i] eCW1 ([facility]) Body mass index (BMI) [Ratio] 27.99 kg/m2 27.99 kg/m2 eCW1 ([facility]) Heart rate 98 /min 98 /min eCW1 ([facility]) Respiratory rate 18 /min 18 /min eCW1 ([facility]) Body temperature 97.9 [degF] 97.9 [degF] eCW1 ( [facility]) Systolic blood pressure 132 mm[Hg] 132 mm[Hg] e CW1 ([facility]) Diastolic blood pressure mm[Hg] eCW1 ([facility]) Patient Treatment Plan of Care Planned Activity Planned Date Details Description Data Source (s) 24 HR Amphetamine aspartate 7.5 MG / Amp hetamine Sulfate 7.5 MG / Dextroamphetamine saccharate 7.5 MG / Dextroamphetamine Sulfate 7.5 MG Extended Release Oral Capsule [Adderall] 04/06/2021 12:00:00 AM EDT eCW1 ([facility]) 24 HR Amphetamine aspartate 7.5 MG / Amp hetamine Sulfate 7.5 MG / Dextroamphetamine saccharate 7.5 MG / Dextroamphetamine Sulfate 7.5 MG Extended Release Oral Capsule [Adderall] 03/06/2021 12:00:00 AM EDT eCW1 ([facility]) Amphetamine aspartate 1.25 MG / Amphetam ine Sulfate 1.25 MG / Dextroamphetamine saccharate 1.25 MG / Dextroamphetamine Sulfate 1.25 MG Oral Tablet [Adderall] 02/05/2021 12:00:00 AM EDT eCW1 ([facility]) Amphetamine aspartate 1.25 MG / Amphetam ine Sulfate 1.25 MG / Dextroamphetamine saccharate 1.25 MG / Dextroamphetamine Sulfate 1.25 MG Oral Tablet [Adderall] 02/05/2021 12:00:00 AM EDT eCW1 ([facility]) 24 HR Amphetamine aspartate 7.5 MG / Amp hetamine Sulfate 7.5 MG / Dextroamphetamine saccharate 7.5 MG / Dextroamphetamine Sulfate 7.5 MG Extended Release Oral Capsule [Adderall] 02/05/2021 12:00:00 AM EDT eCW1 ([facility]) Amphetamine aspartate 1.25 MG / Amphetam ine Sulfate 1.25 MG / Dextroamphetamine saccharate 1.25 MG / Dextroamphetamine Sulfate 1.25 MG Oral Tablet [Adderall] 02/05/2021 12:00:00 AM EDT eCW1 ([facility]) 24 HR Amphetamine aspartate 7.5 MG / Amp hetamine Sulfate 7.5 MG / Dextroamphetamine saccharate 7.5 MG / Dextroamphetamine Sulfate 7.5 MG Extended Release Oral Capsule [Adderall] 01/04/2021 12:00:00 AM EDT eCW1 ([facility]) 24 HR Amphetamine aspartate 7.5 MG / Amp hetamine Sulfate 7.5 MG / Dextroamphetamine saccharate 7.5 MG / Dextroamphetamine Sulfate 7.5 MG Extended Release Oral Capsule [Adderall] 01/04/2021 12:00:00 AM EDT eCW1 ([facility]) 24 HR Amphetamine aspartate 7.5 MG / Amp hetamine Sulfate 7.5 MG / Dextroamphetamine saccharate 7.5 MG / Dextroamphetamine Sulfate 7.5 MG Extended Release Oral Capsule [Adderall] 12/04/2020 12:00:00 AM EDT eCW1 ([facility]) Famotidine 20 MG Oral Tablet 11/07/2020 12:00:00 AM EDT eCW1 ([facility]) Famotidine 20 MG Oral Tablet 11/07/2020 12:00:00 AM EDT eCW1 ([facility]) Famotidine 20 MG Oral Tablet 11/07/2020 12:00:00 AM EDT eCW1 ([facility]) Famotidine 20 MG Oral Tablet 11/07/2020 12:00:00 AM EDT eCW1 ([facility]) Famotidine 20 MG Oral Tablet 11/07/2020 12:00:00 AM EDT eCW1 ([facility]) Famotidine 20 MG Oral Tablet 11/07/2020 12:00:00 AM EDT eCW1 ([facility]) Famotidine 20 MG Oral Tablet 11/07/2020 12:00:00 AM EDT eCW1 ([facility]) 24 HR Amphetamine aspartate 7.5 MG / Amp hetamine Sulfate 7.5 MG / Dextroamphetamine saccharate 7.5 MG / Dextroamphetamine Sulfate 7.5 MG Extended Release Oral Capsule [Adderall] 11/01/2020 12:00:00 AM EST eCW1 ([facility]) 24 HR Amphetamine aspartate 7.5 MG / Amp hetamine Sulfate 7.5 MG / Dextroamphetamine saccharate 7.5 MG / Dextroamphetamine Sulfate 7.5 MG Extended Release Oral Capsule [Adderall] 10/02/2020 12:00:00 AM EST eCW1 ([facility]) 24 HR Amphetamine aspartate 5 MG / Amphe tamine Sulfate 5 MG / Dextroamphetamine saccharate 5 MG / Dextroamphetamine Sulfate 5 MG Extended Release Oral Capsule [Adderall] 08/08/2020 12:00:00 AM EST eCW1 ([facility]) 24 HR Amphetamine aspartate 7.5 MG / Amp hetamine Sulfate 7.5 MG / Dextroamphetamine saccharate 7.5 MG / Dextroamphetamine Sulfate 7.5 MG Extended Release Oral Capsule [Adderall] 07/13/2020 12:00:00 AM EST eCW1 ([facility]) 24 HR Amphetamine aspartate 7.5 MG / Amp hetamine Sulfate 7.5 MG / Dextroamphetamine saccharate 7.5 MG / Dextroamphetamine Sulfate 7.5 MG Extended Release Oral Capsule [Adderall] 07/13/2020 12:00:00 AM EST eCW1 ([facility]) 24 HR Amphetamine aspartate 7.5 MG / Amp hetamine Sulfate 7.5 MG / Dextroamphetamine saccharate 7.5 MG / Dextroamphetamine Sulfate 7.5 MG Extended Release Oral Capsule [Adderall] 07/13/2020 12:00:00 AM EST eCW1 ([facility]) 24 HR Amphetamine aspartate 7.5 MG / Amp hetamine Sulfate 7.5 MG / Dextroamphetamine saccharate 7.5 MG / Dextroamphetamine Sulfate 7.5 MG Extended Release Oral Capsule [Adderall] 07/13/2020 12:00:00 AM EST eCW1 ([facility]) 24 HR Amphetamine aspartate 7.5 MG / Amp hetamine Sulfate 7.5 MG / Dextroamphetamine saccharate 7.5 MG / Dextroamphetamine Sulfate 7.5 MG Extended Release Oral Capsule [Adderall] 06/13/2020 12:00:00 AM EDT eCW1 ([facility])
--- OUTSIDE RECORDS SUMMARY | 2021-07-05 06:49 | CCD ---
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 Discussed options for care and risks/benefits and low cure rate associated with treatment Problem Lower urinary tract symptoms (LUTS) R39.9 Acti ve confirmed 725543066 Problem Melanocytic nevi of trunk D22.5 Active confirmed 061161433 no apparent change noted Problem Burn from the sun L55.9 Active confirmed 40 0956988 Problem Attention and concentration deficit R41.840 Acti ve confirmed 313096334 Problem Influenza vaccination declined Z28.21 Active confir med 180287422 Problem Other chronic pain G89.29 Active confirmed 8 7597531 ALLERGIES No Known Allergies ENCOUNTERS from 1975 to 2021-05-15 Encounter Location Date Provider Diagnosis [address] [phone] [place] [address] 14 Apr, 2021 Josué Kan Attention and concentration deficit R41.840 ; Gastroesophageal reflux disease without esophagitis K21.9 ; Screening for hyperlipidemia Z13.220 ; Need for hepatitis C screening test Z11.59 ; Screening for diabetes mellitus Z13.1 and Colon cancer screening Z12.11 IMMUNIZATIONS Vaccine Route Administration Date Status Influenza 18 yrs & older Flublok Unknown Jun 15, 2019 Administered TDAP 0.5mL (Boostrix) IM Intramuscular Jul 29, 2019 Administe red Influenza 6mo & up Fluzone Unknown Jun 03, 2018 Admin istered Influenza 6mo & up Fluzone Unknown Jun 09, 2017 Admin istered Influenza 6mo & up Fluzone Unknown Jun 08, 2014 Admin istered SOCIAL HISTORY Tobacco Use: Social History Observation Description Date Details (start date - stop date) Former Smoker Sex Assigned At : Social History Observation Description Sex Assigned At Unknown Education: Question Answer Notes Level of Education: College Audit Question Answer Notes Total Score: 0 Interpretation: Alcohol Education Language: Question Answer Notes Languages spoken: Yi Tenriism: Question Answer Notes Tenriism 33 None Sexual Hx: Question Answer Notes Had sex in the last 12 months (vaginal, oral, or anal)? Yes Have you ever had an STD? No with Women only Use protection? No Drug and Alcohol Question Answer Notes Total Score: 0 Interpretation: No problems reported Alcohol Screening: Question Answer Notes Did you have a drink containing alcohol in the past year? Ye s Points 2 Interpretation Negative How often did you have six or more drinks on one occas ion in the past year? Never (0 points) How many drinks did you have on a typica l day when you were drinking in the past year? 3 or 4 (1 point) How often did you have a drink containing alcohol in t he past year? Monthly or less (1 point) Tobacco Use: Question Answer Notes Are you a: former smoker How long has it been since you last smoked? > 10 years REASON FOR REFERRAL from 1975 to 2021-05-15 Reason Screening colonoscopy Diagnosis 1 Colon cancer screening (Z12. 11) Referral Organization [facility] Lia Referring Provider First Name Josué Referring Provider Last Name Loreta Referring Provider Specialty Family Medicine Referred Provider Donavon Reyes Referred Provider Specialty Gastroenterology Referral Priority Routine General Notes Yomaira Mcfadden 05/08/2021 5:0 1:12 PM > Josué Paige DO 05/09/2021 7:43:26 AM > Cancelling referral Reason Screening colonoscopy Diagnosis 1 Colon cancer screening (Z12. 11) Referral Organization [facility] Lia Referring Provider First Name Josué Referring Provider Last Name Loreta Referring Provider Specialty Family Medicine Referred Provider Jose Eduardo Cruz Referred Provider Specialty General Surgery Referral Priority Routine General Notes Yomaira Mcfadden 05/09/2021 4:4 4:31 PM > Sent VITAL SIGNS Weight 231.2 lbs Apr, Weight-kg 104.87 kg Apr, Height 76 in Apr, BMI 28.14 kg/m2 Apr, Heart Rate 80 /min Apr, Respiratory Rate 17 /min Apr, Temperature 98.6 degrees Fahrenheit Apr, Oximetry 98 Apr, Blood pressure systolic 117 mm Hg Apr, Blood pressure diastolic 76 mm Hg Apr, MEDICATIONS Medication SIG (Take, Route, Frequency, Duration) Notes Start Da te End Date Status Naproxen 500 MG 1 tablet as needed Orally every 12 hrs for 30 da ys Aug, Not-Taking Acetaminophen 500 MG 2 capsules as needed Orally every 6 hrs Not-Taking Adderall XR 30 MG 1 capsule in the morning Orally Once a day for 30 days Apr, Active Benzonatate 200 MG 1 capsule Orally Three times a day as needed for cough for 14 day(s) Jan, Not-Taking Adderall 5 MG 1 tablet in the morning Orally Once a day Code B for 30 Days Apr, Active predniSONE 20 MG 1 tablet Orally bid for 5 day(s) Aug, Not-Taking Famotidine 20 MG 1 tablet at bedtime as needed Orally Onc e a day for 30 day(s) Oct, Not-Taking Ondansetron 4 MG 1 tablet (ODT) on the tongue and allow to dissolve Orally every 8 hrs as needed for nausea/vomiting for 5 day(s) Aug, Not-Taking Ranitidine HCl 150 MG 1 capsule at bedtime Orally Once a day for 30 day(s) Oct, Not-Taking ZyrTEC Allergy 10 mg 1 tablet p.o. daily for 30 day(s) Active ProAir HFA 108 (90 Base) mcg/act 2 puffs as needed Inh alation every 4 hrs for 30 days Aug, Not-Taking Omeprazole 20 MG 1 capsule Orally Once a day for 90 Active PROCEDURES No Information RESULTS No Results REASON FOR VISIT 6 mth MEDICAL (GENERAL) HISTORY Type Description Date Medical History allergic rhinitis and conjunctivitis Medical History ADHD (childhood and adult) Medical History L MCL injury (conservative treatment, Dr Mike Loya) Medical History GERD, previous endoscopy 2017 Medical History COVID Vaccine, pfizer Surgical History R bunionectomy (Pelletiere) 2002 Surgical History R tailor's bunionectomy (Pelletiere) 200 5 Surgical History L meniscectomy (Les Loya) 2005 Surgical History vasectomy (Lance) 06/2008 Surgical History Left patellar microfracture procedure (Roger Loya) 05/2012 Surgical History endoscopy 03/24/18 Goals Section No Information Health Concerns No Information MEDICAL EQUIPMENT No Information MENTAL STATUS No Information FUNCTIONAL STATUS No Information ASSESSMENTS Encounter Date Diagnosis Assessment Notes Treatment Notes Treatm ent Clinical Notes Apr, Attention and concentration deficit (ICD-10 - R4 1.840) Uses XR daily and getting benefit. Has started regular exercise and getting benefit from that as welll. When having late meetings will use additional dose in afternoon, 1-2 PM. No effect of sleep, appetite. Apr, Gastroesophageal reflux dise ase without esophagitis (ICD-10 - K21.9) May try repeat pepcid/ taper again in future. In meantime continue omeprazole. Reviewed shelter concerns of PPI use. Consider Pepcid BID in future. Apr, Screening for hyperlipidemia (ICD-10 - Z13.220) Order lipid panel to monitor cholesterol level. Apr, Need for hepatitis C screening test (ICD-10 - Z1 1.59) Reviewed screening for hep C per [place]PST guidelines. Patient agreed. Apr, Screening for diabetes mellitus (ICD-10 - Z13.1) Order labs to screen for prediabetes/ diabetes. Management per results. Apr, Colon cancer screening (ICD-10 - Z12.11) Referring patient to have screening colonoscopy performed. Updated guidelines recommend starting general population 45 years old. PLAN OF TREATMENT Treatment Notes Assessment Notes Clinical Notes Attention and concentration deficit Uses XR daily and getting benefit. Has started regular exercise and getting benefit from that as welll. When having late meetings will use additional dose in afternoon, 1-2 PM. No effect of sleep, appetite. Gastroesophageal reflux disease without esophagitis May try repeat pepcid/ taper again in future. In meantime continue omeprazole. Reviewed cadet deck concerns of PPI use. Consider Pepcid BID in future. Screening for hyperlipidemia Order lipid panel to monitor cholesterol level. Need for hepatitis C screening test Revi ewed screening for hep C per USPST guidelines. Patient agreed. Screening for diabetes mellitus Order la bs to screen for prediabetes/ diabetes. Management per results. Colon cancer screening Referring patient to have screening colonoscopy performed. Updated guidelines recommend starting general population 45 years old. Treatment Notes Test Name Order Date HEPATITIS C ANTIBODY INDEX 2021-05-08 HEMOGLOBIN A1c 2021-05-08 LIPID PANEL (CARDIAC RISK) 2021-05-08 Basic Metabolic Profile (BMP) 2021-05-08 Referrals Referral Date Details Screening colonoscopy, Donavon Reyes Screening colonoscopy, Jose Eduardo barnes Next Appt Details 6 mth Reason: Provider Name:Josué Kan, 2021-11-05 07:30:00 AM, [address] [facility], , [place], [address], Insurance Providers Payer Name Payer Address Payer Phone Insured Name Patient Relati onship to Insured Coverage Start Date Coverage End Date [facility] [id number] [facility] [id number] LORI MANTILLA self
--- OUTSIDE RECORDS SUMMARY | 2021-07-05 06:49 | CCD ---
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 Discussed options for care and risks/benefits and low cure rate associated with treatment Problem Lower urinary tract symptoms (LUTS) R39.9 Acti ve confirmed 184157770 Problem Melanocytic nevi of trunk D22.5 Active confirmed 410494287 no apparent change noted Problem Burn from the sun L55.9 Active confirmed 40 9396785 Problem Attention and concentration deficit R41.840 Acti ve confirmed 273705324 Problem Influenza vaccination declined Z28.21 Active confir med 305520047 Problem Other chronic pain G89.29 Active confirmed 8 7035034 ALLERGIES No Known Allergies ENCOUNTERS from 1976 to 2021-04-06 Encounter Location Date Provider Diagnosis [facility] [address] [facility] [phone] [place] [address] Mar, Martha Meléndez IMMUNIZATIONS Vaccine Route Administration Date Status Influenza [...] Education Language: Question Answer Notes Languages spoken: Emirati Islam: Question Answer Notes Islam 33 None Sexual Hx: Question Answer Notes [...] smoked? > 10 years REASON FOR REFERRAL No Information VITAL SIGNS No information MEDICATIONS Medication SIG (Take, Route, Frequency, Duration) Notes Start Da te End Date Status ZyrTEC Allergy 10 mg 1 tablet p.o. daily for 30 day(s) Active Adderall 5 MG 1 tablet in the morning Orally Once a day Code B for 30 Days Jan, Active ProAir HFA 108 (90 Base) mcg/act 2 puffs as needed Inh alation every 4 hrs for 30 days Aug, Not-Taking predniSONE 20 MG 1 tablet Orally bid for 5 day(s) Aug, Not-Taking Benzonatate 200 MG 1 capsule Orally Three times a day as needed for cough for 14 day(s) Jan, Not-Taking Omeprazole 20 MG 1 capsule Orally Once a day for 90 Active Ranitidine HCl 150 MG 1 capsule at bedtime Orally Once a day for 30 day(s) Oct, Not-Taking Acetaminophen 500 MG 2 capsules as needed Orally every 6 hrs Active Ondansetron 4 MG 1 tablet (ODT) on the tongue and allow to dissolve Orally every 8 hrs as needed for nausea/vomiting for 5 day(s) Aug, Not-Taking Naproxen 500 MG 1 tablet as needed Orally every 12 hrs for 30 da ys Aug, Not-Taking Famotidine 20 MG 1 tablet at bedtime as needed Orally Onc e a day for 30 day(s) Oct, Active Adderall XR 30 MG 1 capsule in the morning Orally Once a day for 30 days Mar, Active PROCEDURES No Information RESULTS No Results REASON FOR VISIT New Refill Request MEDICAL (GENERAL) HISTORY Type Description Date Medical [...] No Information FUNCTIONAL STATUS No Information ASSESSMENTS No Information PLAN OF TREATMENT Medication Medication Name Sig Start Date Stop Date Omeprazole 20 MG 1 capsule Orally Once a day for 90 Famotidine 20 MG 1 tablet at bedtime as needed Orally Onc e a day for 30 day(s) Oct, Adderall 5 MG 1 tablet in the morning Orally Once a da y Code B for 30 Days Jan, Adderall XR 30 MG 1 capsule in the morning Orally Once a d ay for 30 days Mar, Next Appt Details Provider Name:Josué Kan, 2021-05-08 07:30:00 AM, [address] [facility], , [place], [address], Insurance Providers Payer Name Payer Address Payer Phone Insured Name Patient Relati onship to Insured Coverage Start Date Coverage End Date [facility] [id number] [facility] [address] LORI MANTILLA self
--- OUTSIDE RECORDS SUMMARY | 2021-07-05 06:49 | CCD ---
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 Discussed options for care and risks/benefits and low cure rate associated with treatment Problem Lower urinary tract symptoms (LUTS) R39.9 Acti ve confirmed 265415235 Problem Melanocytic nevi of trunk D22.5 Active confirmed 933727178 no apparent change noted Problem Burn from the sun L55.9 Active confirmed 40 4790018 Problem Attention and concentration deficit R41.840 Acti ve confirmed 065922276 Problem Influenza vaccination declined Z28.21 Active confir med 205112356 Problem Other chronic pain G89.29 Active confirmed 8 8447175 ALLERGIES No Known Allergies ENCOUNTERS from 1975 to 2021-05-09 Encounter Location Date Provider Diagnosis [address] [phone] [place] [address] Apr, [facility] IMMUNIZATIONS Vaccine Route Administration Date Status Influenza [...] Education Language: Question Answer Notes Languages spoken: Lao Protestant: Question Answer Notes Protestant 33 None Sexual Hx: Question Answer Notes [...] hrs for 30 da ys Aug, Not-Taking Benzonatate 200 MG 1 capsule Orally Three times a day as needed for cough for 14 day(s) Jan, Not-Taking Adderall XR 30 MG 1 capsule in the morning Orally Once a day for 30 days Apr, Active Famotidine 20 MG 1 tablet at bedtime as needed Orally Onc e a day for 30 day(s) Active Adderall 5 MG 1 tablet in the morning Orally Once a day Code B for 30 Days Apr, Active predniSONE 20 MG 1 tablet Orally bid for 5 day(s) Aug, Not-Taking Acetaminophen 500 MG 2 capsules as needed Orally every 6 hrs Not-Taking Ondansetron 4 MG 1 tablet (ODT) [...] Information RESULTS No Results REASON FOR VISIT Colonoscopy MEDICAL (GENERAL) HISTORY Type Description Date Medical [...] Medication Name Sig Start Date Stop Date Famotidine 20 MG 1 tablet at bedtime as needed Orally Onc e a day for 30 day(s) Next Appt Details Provider Name:Josué Kan, 2021-11-05 07:30:00 AM, [id number] [facility], , [place], [address], Insurance Providers Payer Name Payer Address Payer Phone Insured Name Patient Relati onship to Insured Coverage Start Date Coverage End Date [facility] [facility] [id number] [facility] [id number] LORI MANTILLA self
--- OUTSIDE RECORDS SUMMARY | 2021-07-05 06:49 | CCD | Continuity of Care Document ---
Author Author Edilson NGUYEN M.D. Organization Unknown Address [address], [address] [place] [address] Phone [phone] Care Team Providers Care Argon Tester Name Role Phone Josué Kan D.O. 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 [...] Donny Lee M.D. COLO SCREENING Scheduled 05/25 [facility] [address], [address] [place] [address] [id number] [phone]
[2021-07-05] MEDS ORDERED: propofoL 200 MG/20 ML VIAL As Ordered ONE (07:16)
[2021-07-05] MEDS ORDERED: LIDOCAINE 2% 100MG/5ML SDV (FOR ANES.) As Ordered ONE (07:18)
--- NOTE | 2021-07-05 08:07 | ROOR ---
Patient Name: Edilson Cordoba Procedure Date: 07/05/2021 7:31 AM Date of : 1975 Age: 46 Room: [facility] Gender: Male Note Status: Finalized Procedure: Colonoscopy Indications: Screening for colorectal malignant neoplasm, This is the patient's first colonoscopy Providers: Marco A Rothman MD Referring MD: Josué Kan DO Requestmakayla Provider: Medicines: Monitored Anesthesia Care Complications: No immediate complications. Procedure: Pre-Anesthesia Assessment: - Prior to the procedure, a History and Physical was performed, and patient medications and allergies were reviewed. The patient is competent. The risks and benefits of the procedure and the sedation options and risks were discussed with the patient. All questions were answered and informed consent was obtained. Patient identification and proposed procedure were verified by the physician, the nurse and the food beverage server in the procedure room. Mental Status Examination: alert and oriented. Airway Examination: normal oropharyngeal airway and neck mobility. Prophylactic Antibiotics: The patient does not require prophylactic antibiotics. Prior Anticoagulants: The patient has taken no previous anticoagulant or antiplatelet agents. ASA Grade Assessment: I - A normal, healthy patient. After reviewing the risks and benefits, the patient was deemed in satisfactory condition to undergo the procedure. The anesthesia plan was to use monitored anesthesia care (MAC). Immediately prior to administration of medications, the patient was re-assessed for adequacy to receive sedatives. The heart rate, respiratory rate, oxygen saturations, blood pressure, adequacy of pulmonary ventilation, and response to care were monitored throughout the procedure. The physical status of the patient was re-assessed after the procedure. The Colonoscope was introduced through the anus and advanced to the cecum, identified by appendiceal orifice and ileocecal valve. The colonoscopy was performed without difficulty. The patient tolerated the procedure well. The quality of the bowel preparation was excellent. Findings: The perianal and digital rectal examinations were normal. The colon (entire examined portion) appeared normal. Impression: - The entire examined colon is normal. - No specimens collected. Recommendation: - Discharge patient to home. - Resume previous diet. - Continue present medications. - Repeat colonoscopy in 10 years for screening purposes. Procedure Code(s): --- Professional --- 28595, Colonoscopy, flexible; diagnostic, including collection of specimen(s) by brushing or washing, when performed (separate procedure) Diagnosis Code(s): --- Professional --- Z12.11, Encounter for screening for malignant neoplasm of colon CPT copyright 2019 [employer]. All rights reserved. The codes documented in this report are preliminary and upon outpatient coder review may be revised to meet current compliance requirements. Marco A Rothman MD Marco A Rothman MD 07/05/2021 8:07:00 AM Electronically signed by Marco A Rothman MD Number of Addenda: 0 Note Initiated On: 07/05/2021 7:31 AM Estimated Blood Loss: Estimated blood loss: none.
[2021-07-05 08:22] VITALS: BP 115/71
== END 2021-07-05 08:25 | disposition home or self-care (01) ==
LOC: M OPP 06:44
PROVIDERS: ATTEND Surgery
DX: K21.9 Gastro-esophageal reflux disease without esophagitis (principal); Z12.11 Encounter for screening for malignant neoplasm of colon

== ENCOUNTER → 2021-07-13 | Outpatient (CLI) | payer BC ==
[~2021-07-13] MED LIST changes: -NS 1,000 ML IV ONE
[2021-07-13 16:02] LABS: HEMOGLOBIN A1c 5.1 %
[2021-07-13 16:08] LABS: BLOOD UREA NITROGEN 12 MG/DL (7-18); CALCIUM LEVEL 9.4 MG/DL (8.5-10.1); CARBON DIOXIDE LEVEL 30 MEQ/L (21-32); CHLORIDE LEVEL 106 MEQ/L (98-107); CHOLESTEROL LEVEL 207 MG/DL (<200); CREATININE FOR GFR 1.11 MG/DL (0.70-1.30); GLOMERULAR FILTRATION RATE > 60.0 (>60); GLUCOSE, FASTING 86 MG/DL (70-100); HDL CHOLESTEROL 45 MG/DL (>40); LDL CHOLESTEROL 140 MG/DL (<100); NON-HDL-C 162 MG/DL; POTASSIUM SERUM 3.8 MEQ/L (3.5-5.1); SODIUM LEVEL 140 MEQ/L (136-145); TRIGLYCERIDES LEVEL 108 MG/DL (<150)
[2021-07-13 16:56] LABS: HEPATITIS C VIRUS ABY INDEX 0.1 INDEX (<0.8)
== END ==
LOC: M LAB 15:12
PROVIDERS: ATTEND Family Medicine
DX: Z13.1 Encounter for screening for diabetes mellitus (principal); Z13.220 Encounter for screening for lipoid disorders; Z11.59 Encounter for screening for other viral diseases

== ENCOUNTER → 2021-08-04 | Outpatient (CLI) | payer BC ==
[2021-08-04 09:25] LABS: ALBUMIN 4.2 GM/DL (3.2-5.2); BILIRUBIN,DIRECT 0.2 MG/DL (0.0-0.2); BILIRUBIN,TOTAL 0.7 MG/DL (0.2-1.0); TOTAL PROTEIN 7.1 GM/DL (6.4-8.2)
== END ==
LOC: M LAB 08:09
PROVIDERS: ATTEND Dermatology
DX: B35.1 Tinea unguium (principal)

== ENCOUNTER → 2022-02-05 | Outpatient (CLI) | payer BC ==
[2022-02-05 08:13] LABS: ALBUMIN 4.1 GM/DL (3.2-5.2); BILIRUBIN,DIRECT 0.2 MG/DL (0.0-0.2); BILIRUBIN,TOTAL 0.4 MG/DL (0.2-1.0)
== END ==
LOC: M LAB 07:29
PROVIDERS: ATTEND Dermatology
DX: B35.1 Tinea unguium (principal); Z51.81 Encounter for therapeutic drug level monitoring; Z79.899 Other long term (current) drug therapy

== ENCOUNTER → 2022-04-22 | Outpatient (REF) | payer BC ==
[2022-04-22 17:04] LABS: APPEARANCE, URINE MANUAL CLEAR (CLEAR); COLOR, URINE MANUAL YELLOW (YELLOW)
[2022-04-22 17:05] LABS: BILIRUBIN, URINE MANUAL NEGATIVE (NEGATIVE); BLOOD URINE MANUAL NEGATIVE (NEGATIVE); GLUCOSE, URINE (UA) MANUAL NEGATIVE (NEGATIVE); KETONE, URINE MANUAL NEGATIVE (NEGATIVE); LEUKOCYTE ESTERASE, URINE MAN NEGATIVE (NEGATIVE); NITRITE, URINE MANUAL NEGATIVE (NEGATIVE); PROTEIN, URINE MANUAL NEGATIVE (NEGATIVE); UROBILINOGEN, URINE MANUAL NORMAL (NORMAL)
== END ==
LOC: M SMT 16:42
PROVIDERS: ATTEND Urology
DX: R31.0 Gross hematuria (principal)

== ENCOUNTER → 2022-08-08 | Outpatient (REF) | payer BC | LOC: M SFHCDERM 14:59 | PROVIDERS: ATTEND Dermatology | DX: D48.9 Neoplasm of uncertain behavior, unspecified (principal); D23.5 Other benign neoplasm of skin of trunk ==

== ENCOUNTER → 2022-08-15 | Outpatient (REF) | LOC: M EMP 14:08 | PROVIDERS: ATTEND Family Medicine | DX: Z11.52 Encounter for screening for COVID-19 (principal) ==

== ENCOUNTER → 2022-11-04 | Outpatient (CLI) | payer BC ==
[2022-11-04 08:28] LABS: BLOOD UREA NITROGEN 25 MG/DL (9-23); CALCIUM LEVEL 9.1 MG/DL (8.5-10.1); CARBON DIOXIDE LEVEL 28 MMOL/L (20-31); CHLORIDE LEVEL 105 MMOL/L (98-107); CHOLESTEROL LEVEL 185 MG/DL (<200); CHOLESTEROL RISK RATIO 4.15 (<5); GLOMERULAR FILTRATION RATE > 60.0 (>60); GLUCOSE, FASTING 107 MG/DL (60-100); HDL CHOLESTEROL 44.5 MG/DL (>40); LDL CHOLESTEROL 120.9 MG/DL (<100); NON-HDL-C 140.5 MG/DL; POTASSIUM SERUM 4.2 MMOL/L (3.5-5.1); SODIUM LEVEL 140 MMOL/L (136-145); TRIGLYCERIDES LEVEL 98 MG/DL (<150)
== END ==
LOC: M LAB 07:05
PROVIDERS: ATTEND Family Medicine
DX: E78.5 Hyperlipidemia, unspecified (principal)

== ENCOUNTER → 2023-10-22 | Outpatient (REF) ==
[2023-10-22 11:49] LABS: RSV AMPLIFICATION NEGATIVE (NEGATIVE)
== END ==
LOC: M EMP 10:51
PROVIDERS: ATTEND Family Medicine
DX: Z01.89 Encounter for other specified special examinations (principal)

== ENCOUNTER → 2023-11-21 | Outpatient (REF) ==
[2023-11-21 16:20] LABS: RSV AMPLIFICATION POSITIVE (NEGATIVE)
== END ==
LOC: M EMP 15:33
PROVIDERS: ATTEND Family Medicine
DX: Z20.822 Contact with and (suspected) exposure to COVID-19 (principal)

== ENCOUNTER → 2024-08-13 | Outpatient (REF) | LOC: M EMP 07:39 | PROVIDERS: ATTEND Family Medicine | DX: Z11.52 Encounter for screening for COVID-19 (principal) ==

== ENCOUNTER → 2024-09-22 | Outpatient (CLI) | payer BC ==
[2024-09-22 08:24] LABS: ALBUMIN 4.1 G/DL (3.2-5.2); BILIRUBIN,DIRECT 0.2 MG/DL (<0.4); BILIRUBIN,TOTAL 0.5 MG/DL (0.3-1.2); TOTAL PROTEIN 6.7 G/DL (5.7-8.2)
== END ==
LOC: M LAB 07:20
PROVIDERS: ATTEND Dermatology
DX: B35.1 Tinea unguium (principal)

== ENCOUNTER → 2025-06-27 | Outpatient (CLI) | payer BC | LOC: M PLAIMG 08:07 | PROVIDERS: ATTEND Neuromusculoskeletal Medicine, Sports Medicine | DX: M25.511 Pain in right shoulder (principal) ==

== ENCOUNTER 2025-07-20 07:44 | Outpatient (RCR) | payer BC | END 2025-07-24 | LOC: M PT 07:44 | PROVIDERS: ATTEND Neuromusculoskeletal Medicine, Sports Medicine | DX: M25.511 Pain in right shoulder (principal) ==

== ENCOUNTER → 2025-07-29 | Outpatient (REF) ==
[2025-07-29 14:13] LABS: SOFIA COVID ANTIGEN NEGATIVE (NEGATIVE)
== END ==
LOC: M EMP 11:28
PROVIDERS: ATTEND Family Medicine
DX: Z01.89 Encounter for other specified special examinations (principal)

== ENCOUNTER → 2025-08-24 | Outpatient (RCR) | payer BC | LOC: M PT 07-27 11:05 | PROVIDERS: ATTEND Neuromusculoskeletal Medicine, Sports Medicine | DX: M25.511 Pain in right shoulder (principal); M24.111 Other articular cartilage disorders, right shoulder ==